=== PATIENT | female | born 1980 | race African-American/Black ===

== ENCOUNTER 2016-11-29 22:38 | Inpatient (IN) | payer OTHER ==
[~2016-11-29] VITALS: Ht 154.9 cm; Wt 72.0 kg
[2016-11-29] MEDS: LR 1,000 ML IV SCH (00:45)
[2016-11-29] MEDS ORDERED: LACTATED RINGER'S 1000 ML IV STA (23:05)
[2016-11-29] MEDS ORDERED: AMPICILLIN SOD 2 GM in D5W MINI-BAG PLUS 100 ML IV STA (23:05)
[2016-11-29 23:09] VITALS: BP 119/79
[2016-11-29 23:46] LABS: MEAN CORPUSCULAR HEMOGLOBIN 29.7 pg (27.0-33.0); MEAN CORPUSCULAR HGB CONC 33.6 g/dl (32.0-36.5); MEAN CORPUSCULAR VOLUME 88.4 fl (80.0-96.0); RED CELL DISTRIBUTION WIDTH 13.4 % (11.5-14.5); WHITE BLOOD COUNT 8.6 K/mm3 (4.0-10.0)
[2016-11-30] VITALS (19 sets, daily range): BP systolic 98–147; BP diastolic 55–112
[2016-11-30] MEDS ORDERED: PRENTAB9 PO (00:21)
[2016-11-30] MEDS ORDERED: OXYTOCIN DRIP 30 UNITS in APPROPRIATE DILUENT 1 EA IV SCH ×2 (01:00→05:53)
--- NOTE | 2016-11-30 01:09 | HPEPDOC ---
Obstetrical History & Physical General Date of Admission Nov 29, 2016 at 23:28 History of Present Illness Terry is a 36yo with SIUP at 39w0d presenting tonight with loss of fluid and ctx. She states around 1300 on 11/29 she noted a gush of clear fluid that soaked her panties. Then around 1700 she noticed more leaking. Her ctx started somewhere between the gushes of fluid and are only mildly painful. No vaginal bleeding. Feels good movement. 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[employer] CHIEF History: Uterine fibroids, Other (cervical polyp) Past Medical History Surgical History: Denies/None Family History Significant Family History: No pertinent family hx Social History Marital Status: Family situation: Spouse/partner home Psychosocial History: No pertinent psych hx * Smoker: non-smoker Alcohol: Denies Drugs: denies Imunizations Tdap status: current Influenza Status: current Allergies Coded Allergies: No Known Allergies (Unverified , 11/30/16) Medications Scheduled Multivitamins/ ( 27-0.8 mg) 1 Tab Tab 1 TAB PO DAILY Physical Examination Physical Examination GENERAL: Alert and oriented times three. BREAST: . ABDOMEN: Gravid and non-tender to touch. FETUS: Is vertex (VTX) by sterile vaginal examination (SVE) HEART RATE: Regular rate and rhythm. LUNGS: Clear to auscultation (CTA). EXTREMITIES: trace edema of BLE Laboratory Data 24H [facility]S Laboratory Tests 2 11/29/16 23:34: 11/29/16 23:45: Serology Scanned Report Hepatitis B Testing CBC/BMP Laboratory Tests 11/29/16 23:34 Red Blood Count 4.69, Mean Corpuscular Volume 88.4, Mean Corpuscular Hemoglobin 29.7, Mean Corpuscular Hemoglobin Concent 33.6, Red Cell Distribution Width 13.4 Pertinent Laboratoy Data Blood Type: O+ RBC Antibody Screen: Negative HIV: Negative Hepatitis B: Negative Hepatitis C: Unknown Rapid Plasma Reagin: Nonreactive Rubella: Immune Varicella: Immune Chlamydia/Gonorrhea: Negative Group B Streptococcus: Positive Cystic Fibrosis: Negative Glucose Tolerance Test: 114 Anatomy Ultrasound Ultrasound Date: Jul 19, 2016 Placenta Location: Posterior Normal Anatomy: Yes Placenta Previa: No Estimated Weight (grams): 306 Steroid Therapy Steroid Therapy: No Vaginal Examination Dilation: 4 cm Effacement: 80+% Station: -2 Cervical Consistency: Soft Cervical Position: Anterior Presentation: Cephalic presentation Assessment Heart Rate (FHR): 130 Variability: Moderate Accelerations: Positive Decelerations: None Tocometer Contractions: Yes Frequency: irregular, every 3-7 min. Duration: less than 60 seconds Strength: palpated as mild Assessment/Plan Assessment Terry is a 36yo with SIUP at 39w0d with PROM at 1300(?) on 11/29/16 with clear fluid, nitrazine positive. SCE 4/80/-2. Cephalic by SCE. Cat I tracing. Ctx q4-7min. GBS positive. PMhx: fibroid uterus (multiple, largest 1.5x1.3x1.8cm), cervical polyp w/benign biopsy Plan Admit and orient. 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 Diet: clear liquids Group B Streptococcus (GBS) positive: ampicillin 2/1 Labs and intravenous (IV) per unit protocol. Lactated Ringers (LR): Bolus 1000 mL, then at 125 mL/hr. Anticipate normal spontaneous delivery () C-S as appropriate. Dr. Tonia Landon MD [place] MD Nov 30, 2016 01:08
[2016-11-30] MEDS ORDERED: ONDANSETRON 4MG/2ML VIAL (J2405) IV PRN (03:45)
[2016-11-30] MEDS ORDERED: ONDANSETRON 4MG/2ML VIAL (J2405) As Ordered ONE (03:47)
[2016-11-30] MEDS ORDERED: AMPICILLIN SOD 1 GM in D5W MINI-BAG PLUS 50 ML IV SCH (04:00)
[2016-11-30] MEDS ORDERED: IBUPROFEN 800 MG TAB PO PRN (06:00)
[2016-11-30] MEDS ORDERED: RHOGAM 300 MCG (1500 IU) INJ (J2790) IM SCH (06:00)
[2016-11-30] MEDS ORDERED: DIBUCAINE 1% OINTMENT 30GM TOP PRN (06:00)
[2016-11-30] MEDS ORDERED: MEASLES,MUMPS,RUBELLA VACCINE INJ (MMR-II) (90707) SC SCH (06:00)
[2016-11-30] MEDS ORDERED: LIDOCAINE 1% MDV INJ 50 ML VIAL INFIL ONE (06:00)
[2016-11-30] MEDS ORDERED: ACETAMINOPHEN 500 MG TAB PO PRN (06:00)
--- NOTE | 2016-11-30 06:04 | DNPDOC ---
Delivery Note Delivery Note DATE OF DELIVERY: Nov 30, 2016 at 0505 PREDELIVERY DIAGNOSIS: 39w0d gestation with PROM POST DELIVERY DIAGNOSIS: Delivered. 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 Tonia Landon MD ANESTHESIA: lidocaine ESTIMATED BLOOD LOSS: 200 mL. FINDINGS: 5 pound 4 ounce F infant, Score 9/9. DELIVERY SUMMARY: Terry is a 36yo G2 now P1011 who was admitted to L&D for PROM. She had an uncomplicated of a viable female infant at 0505 on 30 November 2016 at 39w0d. Head delivered OA, restituted FLORESITA. No nuchal cord. Right anterior shoulder delivered followed by posterior shoulder and corpus. Cord clamped x2 and cut by FOB. Infant mouth/nares bulb suctioned. Spontaneous cry noted. Baby placed on mother's abdomen. Apgars 9/9, weight 2390g (5lb4oz). Cord blood obtained due to maternal blood type of O pos. With gentle downward guidance and suprapubic pressure, placenta delivered spontaneously and intact with centrally inserted cord. Fundal massage until uterine fundus firm; fundus at U-2. Pitocin 30 units IV bolus administered. Inspection of perineum and vaginal wall revealed right labial/periclitoral laceration closed with 3.0 vicryl suture using lidocaine for anesthesia with good hemostasis. Mom and in stable condition. Dr. Tonia Landon MD [place] Mun[place] MD Nov 30, 2016 06:04
[2016-11-30] MEDS: LR 1,000 ML IV SCH ×3 (07:05→23:42)
[2016-11-30] MEDS: DOCUSATE SODIUM 100 MG CAP PO SCH ×2 (08:36→19:50)
[2016-11-30] MEDS: PRENATAL VITAMIN TAB PO SCH (08:37)
[2016-12-01 05:51] VITALS: BP 100/61
[2016-12-01] MEDS: LR 1,000 ML IV SCH ×2 (07:05→15:03)
--- NOTE | 2016-12-01 08:16 | IPN ---
DATE: 12/01/2016 day #1. This lady is a 36-year-old, 2, now para 1 who came in with premature rupture of membranes at 39 weeks, spontaneous vaginal delivery of a female, 5 pounds 4 ounces, 2390 grams, scores of 9 and 9 at 1 and 5 minutes, respectively. Hemoglobin 13.9, hematocrit 41.5 and platelets are 152. Her vital signs this morning: Her blood pressure is 100/61, respirations are 16, pulse 87 and temperature is 98.0. We discussed phlebitis, cystitis, mastitis, endometritis and cellulitis, diet, excise pain management, perineal, breast and wound care. She does not require anything for control. She is voiding, passing gas and has had a bowel movement. She is moving around and she is breast-feeding and things are going well. The rest of the examination is unremarkable. She is normocephalic, atraumatic. Neck with full range of motion. Pupils equal and reactive to light. Distal pulses are symmetric. No evidence of deep vein thrombosis (DVT), PE or superficial phlebitis. Chest is clear bilaterally to the bases. No wheezes or rhonchi. Uterus is two below. Lochia is moderate. Four quadrant bowel sounds are noted and the perineum is healing. There are no rashes, lesions or pruritus. No arthralgia. No complaints of cough, wheezes, shortness of breath or dyspnea on exertion. She is not bleeding. She is neuro complete. No incontinency, urgency, or frequency. No nausea, vomiting, diarrhea or constipation. No diabetic issues. In summary, we have a term gestation delivered a live female. PLAN: Discharge tomorrow morning.
[2016-12-01] MEDS: PRENATAL VITAMIN TAB PO SCH (08:48)
[2016-12-01] MEDS: DOCUSATE SODIUM 100 MG CAP PO SCH ×2 (08:48→21:00)
[2016-12-01 18:15] VITALS: BP 96/55
[2016-12-02 06:16] VITALS: BP 101/54
[2016-12-02] MEDS: PRENATAL VITAMIN TAB PO SCH (08:19)
[2016-12-02] MEDS: DOCUSATE SODIUM 100 MG CAP PO SCH (08:20)
[2016-12-02] MEDS ORDERED: COLA100C PO (10:48)
[2016-12-02] MEDS ORDERED: ACET50TA PO (10:48)
[2016-12-02] MEDS ORDERED: IBUP-1114 PO (10:48)
== END 2016-12-02 11:50 | disposition home or self-care (01) | DRG 775 ==
LOC: M LDO 22:38 → M LDI 23:28 → M OBS 11-30 09:10
PROVIDERS: ADMIT Obstetrics & Gynecology; ATTEND Obstetrics & Gynecology
PROC: 10E0XZZ Delivery of Products of Conception, External Approach (ICD-10-PCS; principal; 2016-11-30)
PROC: 0HQ9XZZ Repair Perineum Skin, External Approach (ICD-10-PCS; 2016-11-30)
DX: O34.13 Maternal care for benign tumor of corpus uteri, third trimester (principal); D25.9 Leiomyoma of uterus, unspecified; Z37.0 Single live birth; Z3A.39 39 weeks gestation of pregnancy; Z79.899 Other long term (current) drug therapy; O99.824 Streptococcus B carrier state complicating childbirth; O70.0 First degree perineal laceration during delivery